=== PATIENT | male | born 1975 | race Caucasian/White ===

== ENCOUNTER 2021-08-10 08:40 | Emergency (ER) | payer OTHER ==
[2021-08-10 09:51] LABS: HEMOGLOBIN 16.5 gm/dl (14.0-17.5); RED BLOOD COUNT 5.26 M/UL (4.20-5.50); WHITE BLOOD COUNT 8.8 K/UL (4.5-11.0)
[2021-08-10 10:13] LABS: BUN/CREATININE RATIO 14 (0-10)
[2021-08-10] MEDS ORDERED: AUGMENTIN 875-1 EACH PO (13:13)
== END 2021-08-10 13:22 | disposition home or self-care (01) ==
LOC: ER1 08:40
PROVIDERS: Physician Assistant
DX: J18.9 Pneumonia, unspecified organism (principal); F17.200 Nicotine dependence, unspecified, uncomplicated
CPT/HCPCS: 71045; 80053; 82550; 82553; 83874; 84484; 85025; 93005; 99285

== ENCOUNTER 2021-11-04 12:59 | Emergency (ER) | payer BC ==
[~2021-11-04 12:59] MED LIST: AUGMENTIN 875-1 EACH PO
[2021-11-04 13:48] LABS: HEMOGLOBIN 14.5 gm/dl (14.0-17.5); RED BLOOD COUNT 4.69 M/UL (4.20-5.50); WHITE BLOOD COUNT 7.5 K/UL (4.5-11.0)
[2021-11-04 14:13] LABS: BUN/CREATININE RATIO 12 (0-10)
== END 2021-11-04 15:49 | disposition home or self-care (01) ==
LOC: ER1 12:59
PROVIDERS: Physician Assistant
DX: R10.9 Unspecified abdominal pain (principal)
CPT/HCPCS: 80053; 81001; 83690; 85025; 99284